=== PATIENT | female | born 1975 | race Caucasian/White ===

== ENCOUNTER 2019-01-17 11:38 | Emergency (ER) | payer OTHER ==
[2019-01-17 12:01] VITALS: BP 125/79; PULSE 77; TEMP 98.2; BMI 28.9
[2019-01-17] MEDS ORDERED: ACETAMINOPHEN 500 MG TABLET (FP) PO ONE (12:28)
[2019-01-17] MEDS ORDERED: ACETAMINOPHEN 325 MG TABLET (FP) ONE (12:30)
--- NOTE | 2019-01-17 12:34 | PDOC ---
History of Present Illness - General Chief Complaint: Pain Stated Complaint: LT. HAND PAIN Time Seen by Provider: 01/17/19 12:15 History Source: Patient Exam Limitations: No Limitations - History of Present Illness Initial Comments: 01/17/19 12:29 HISTORY OF PRESENT ILLNESS: This is a 43-year-old woman presents emergency department for evaluation of left wrist pain status post striking it on a metal door jam yesterday afternoon. Patient took Motrin after the initial injury and applied ice. Patient woke up this morning worsening pain and swelling in her wrist. Patient took Aleve prior to arrival. No recent travel or sick contacts. PAST MEDICAL HISTORY: Denies past medical history SURGICAL HISTORY: Denies ALLERGIES: solumedrol REVIEW OF SYSTEMS General/Constitutional: Denies fever or chills. Denies weakness, weight change. HEENT: Denies change in vision. Denies ear pain or discharge. Denies sore throat. Cardiovascular: Denies chest pain or shortness of breath. Respiratory: Denies cough, wheezing, or hemoptysis. Gastrointestinal: Denies nausea, vomiting, diarrhea or constipation. Denies rectal bleeding. Genitourinary: Denies dysuria, frequency, or change in urination. Musculoskeletal: see HPI Skin and breasts: Denies rash or easy bruising. Neurologic: Denies headache, vertigo, loss of consciousness, or loss of sensation. Psychiatric: Denies depression or anxiety. Endocrine: Denies increased thirst. Denies abnormal weight change. Hematologic/Lymphatic: Denies anemia, easy bleeding, or history of blood clots. Allergic/Immunologic: Denies hives or skin allergy. Denies latex allergy. PHYSICAL EXAM General Appearance: Well-appearing, appropriately dressed. No apparent distress , no intoxication. Vascular Pulses: Radial (R): 2+, Radial (L): 2+ Gastrointestinal/Abdominal: Normal bowel sounds. Abdomen soft, non-distended. No tenderness or rebound tenderness. No organomegaly, pulsatile mass, guarding, hernia, hepatomegaly, splenomegaly. Lymphatic: No adenopathy, tenderness. Musculoskeletal/Extremities: Normal inspection. FROM of left wrist including pronation and suppination, normal capillary refill. Pelvis Stable. No CVA tenderness. No tenderness to extremities, pedal edema, swelling, erythema or deformity. Integumentary: Appropriate color, dry, warm. No cyanosis, erythema, jaundice or rash Past History - Past Medical History Allergies/Adverse Reactions: Allergies Allergy/AdvReac Type Severity Reaction Status Date / Time methylprednisolone sodium AdvReac Verified 01/17/19 11:56 succinate [From Solu-Medrol] Home Medications: Ambulatory Orders Omeprazole [Prilosec] 40 mg PO DAILY #0 capsule. 04/15/14 Canagliflozin [Invokana] 300 mg PO DAILY 05/30/14 Albuterol 0.083% Nebulizer Sailaja [Ventolin 0.083% Nebulizer Soln -] 1 neb NEB Q4H PRN #30 vial 05/31/14 Sitagliptin Phos/Metformin HCl [Janumet 50-500 mg Tablet] 1 tab PO BID 09/19/14 Oxycodone HCl/Acetaminophen [Percocet 5-325 mg Tablet] 1 - 2 combo PO Q6H PRN # 14 tablet MDD 6 08/18/15 Anemia: No Asthma: Yes Cancer: No Cardiac Disorders: No CVA: No COPD: No CHF: No Dementia: No Diabetes: Yes (NIDDM) GI Disorders: Yes (H. PYLORI) Disorders: No HTN: No Hypercholesterolemia: No Liver Disease: Yes (FATTY LIVER) Seizures: No Thyroid Disease: No - Surgical History Abdominal Surgery: No Appendectomy: Yes Cardiac Surgery: No Cholecystectomy: Yes Lung Surgery: No - Immunization History Td Vaccination: Yes Immunization Up to Date: Yes - Suicide/Smoking/Psychosocial Hx Smoking Status: No Smoking History: Never smoked Years of Tobacco Use: 0 Have you smoked in the past 12 months: No Number of Cigarettes Smoked Daily: 0 Cigars Per Day: 0 Hx Alcohol Use: No Drug/Substance Use Hx: No Substance Use Type: None Hx Substance Use Treatment: No *Physical Exam - Vital Signs Last Vital Signs Temp Pulse Resp BP Pulse Ox 98.2 F 77 18 125/79 99 01/17/19 11:53 01/17/19 11:53 01/17/19 11:53 01/17/19 11:53 01/17/19 11:53 ED Treatment Course - RADIOLOGY Radiology Studies Ordered: Category Date Time Status WRIST W/HAND-LEFT* [RAD] Stat Radiology 01/17/19 12:28 Ordered Medical Decision Making - Medical Decision Making 01/17/19 12:33 A/P: 43-year-old woman with left wrist pain for 1 day X-ray of the left wrist and hand Tylenol 1 g PO Reassess 01/17/19 13:01 X-rays as read by Dr. Wolf: Swelling present. No acute fracture noted. Jacques wrap Discharge home I discussed the physical exam findings, ancillary test results and final diagnoses with the patient. I answered all of the patient's questions. The patient was satisfied with the care received and felt comfortable with the discharge plan and treatment plan. The patient will call their primary care physician within 24 hours to arrange follow-up and will return to the Emergency Department with any new, persistent or worsening symptoms. Portions of this note have been documented using voice recognition software. As a result, errors may occur in the architecture faculty member process. Effort has been made to correct all grammatical and architecture faculty member error, but some may have been missed. *DC/Admit/Observation/Transfer Diagnosis at time of Disposition: Contusion of wrist, left Qualifiers: Encounter type: initial encounter Qualified Code(s): S60.212A - Contusion of left wrist, initial encounter - Discharge Dispostion Disposition: HOME Condition at time of disposition: Stable Decision to Admit order: No - Referrals Referrals: Fe Arnold MD [Primary Care Provider] - - Patient Instructions Additional Instructions: Take Tylenol or Motrin as needed for pain. Follow manufacturers instructions for appropriate dosage. Apply ice for 20 minutes and removed for at least 20 minutes before reapplying the ice. Keep Jacques wrap on your wrist as much as possible to help decrease some of the swelling control pain. You've been given the number for an orthopedist. If symptoms do not resolve within the next 7 days call the orthopedist for further evaluation. Return to emergency department for discoloration of the fingers, numbness or tingling to the fingers, worsening pain, or any other concerns. Thank you very much for choosing us to provide your emergent healthcare needs. - Post Discharge Activity
== END 2019-01-17 13:15 | disposition home or self-care (01) ==
LOC: JERFT 11:38 → JER 11:38 → JERFT 13:15
DX: S60.212A Contusion of left wrist, initial encounter (principal); W22.09XA Striking against other stationary object, initial encounter; Y93.89 Activity, other specified; Y92.89 Other specified places as the place of occurrence of the external cause; Y99.8 Other external cause status; E11.9 Type 2 diabetes mellitus without complications; Z79.84 Long term (current) use of oral hypoglycemic drugs; Z87.09 Personal history of other diseases of the respiratory system; Z87.19 Personal history of other diseases of the digestive system
CPT/HCPCS: 73110-TC-LT-FY; 73130-TC-LT-FY; 99281-25

== ENCOUNTER 2020-09-09 21:25 | Observation (INO) | payer OTHER ==
[2020-09-09] MEDS ORDERED: ACETAMINOPHEN 1000 MG/100 ML VIAL (NON FORMULARY) IVPB ONE (22:38)
[2020-09-09] MEDS ORDERED: ACETAMINOPHEN INJECTION 100 ML IVPB ONE (22:40)
[2020-09-09 22:42] LABS: BASO % 0.6 % (0-2.0); EOS % 0.9 % (0-4.5); HEMATOCRIT 40.7 % (32.4-45.2); HEMOGLOBIN 13.8 GM/dL (10.7-15.3); LYMPH % 43.1 % (8-40); MCH 29.4 pg (25.7-33.7); MCHC 33.8 g/dl (32.0-36.0); MEAN PLT VOLUME 8.7 fl (7.5-11.1); MONO % 7.6 % (3.8-10.2); NEUT % 47.8 % (42.8-82.8); PLATELET COUNT 291 K/MM3 (134-434); RBC 4.69 M/mm3 (3.60-5.2); RDW 13.6 % (11.6-15.6); WHITE BLOOD COUNT 8.6 K/mm3 (4.0-10.0)
[2020-09-09 23:04] LABS: BLOOD UREA NITROGEN 15.5 mg/dL (7-18)
[2020-09-09 23:08] LABS: CREATININE 0.9 mg/dL (0.55-1.3)
[2020-09-09 23:09] LABS: BILIRUBIN,TOTAL 0.4 mg/dL (0.2-1); TOT PROT 7.6 g/dl (6.4-8.2)
[2020-09-09] MEDS ORDERED: ASPIRIN 81 MG CHEWABLE TABLETS PO ONE (23:12)
[2020-09-09 23:34] LABS: INR 1.01 (0.83-1.09); PROTHROMBIN TIME (PATIENT) 12.2 SEC (9.7-13.0)
[2020-09-09] MEDS ORDERED: ASPIRIN 81 MG CHEWABLE TABLETS ONE (23:35)
[2020-09-09 23:36] LABS: ACTIVATED PTT 29.8 SECONDS (25.2-36.5)
[2020-09-09] MEDS ORDERED: SODIUM CHLORIDE 0.9% 500 ML INFUS.BAG IV ONE (23:51)
[2020-09-10] MEDS ORDERED: ACETAMINOPHEN 325 MG TABLET (FP) PO ONE (02:12)
[2020-09-10] MEDS ORDERED: ENOXAPARIN NA (PORCINE) 80 MG/0.8 ML DISP.SYRIN SQ ONE ×2 (03:10→03:15)
[2020-09-10] MEDS ORDERED: ENOXAPARIN NA (PORCINE) 60 MG/0.6 ML DISP.SYRIN SQ SCH (03:15)
[2020-09-10 04:22] VITALS: BMI 29.5
[2020-09-10] MEDS ORDERED: PNEUMOC 13-VAL CONJ-DIP CRM/PF 0.5 ML DISP.SYRIN IM ONE (04:22)
[2020-09-10] MEDS: INSULIN SLIDING SCALE (NOVOLOG) 1 VIAL SQ SCH ×2 (06:09→12:34)
[2020-09-10] MEDS ORDERED: ASPIRIN COATED 81 MG TABLET.EC PO SCH (10:00)
[2020-09-10] MEDS ORDERED: ENOXAPARIN NA (PORCINE) 40 MG/0.4 ML DISP.SYRIN SQ SCH (10:00)
[2020-09-10] MEDS ORDERED: PNEUMOCOCCAL 23 VACCINE 0.5 ML VIAL IM ONE (10:00)
[2020-09-10 15:18] VITALS: BP 106/64; PULSE 69; TEMP 98.2
== END 2020-09-10 18:23 | disposition home or self-care (01) ==
LOC: JER 21:25 → INTOOBSV 23:47 → UNDOADMOB 23:47 → JERBED 23:47 → J4W 09-10 03:22 → JERBED 09-10 15:55 → J4W 09-10 15:55
PROVIDERS: ADMIT Internal Medicine; ATTEND Internal Medicine
PROC: 3E023GC Introduction of Other Therapeutic Substance into Muscle, Percutaneous Approach (ICD-10-PCS; principal; 2020-09-10)
PROC: 3E033NZ Introduction of Analgesics, Hypnotics, Sedatives into Peripheral Vein, Percutaneous Approach (ICD-10-PCS; 2020-09-10)
PROC: 3E023GC Introduction of Other Therapeutic Substance into Muscle, Percutaneous Approach (ICD-10-PCS; 2020-09-10)
PROC: 3E0337Z Introduction of Electrolytic and Water Balance Substance into Peripheral Vein, Percutaneous Approach (ICD-10-PCS; 2020-09-10)
DX: R07.89 Other chest pain (principal); E11.9 Type 2 diabetes mellitus without complications; J45.909 Unspecified asthma, uncomplicated; R79.89 Other specified abnormal findings of blood chemistry; Z88.8 Allergy status to other drugs, medicaments and biological substances; Z29.9 Encounter for prophylactic measures, unspecified
CPT/HCPCS: 36415; 71045-TC-FY; 71275-TC; 74174-TC; 80053; 80061; 82550; 82553; 82962; 83721; 84484; 85025; 85379; 85610; 85730; 90732; 93005; 93010; 99285-25; C9803; G0009; G0378; J0131; Q9967; U0003; U0005

== ENCOUNTER 2021-05-07 13:39 | Emergency (ER) | payer OTHER ==
[2021-05-07 14:19] VITALS: BP 102/67; PULSE 93; TEMP 97; BMI 29.5
[2021-05-07] MEDS ORDERED: KETOROLAC TROMETHAMINE 30 MG/1 ML VIAL IM ONE (14:29)
[2021-05-07] MEDS ORDERED: KETOROLAC TROMETHAMINE 30 MG/1 ML VIAL ONE (16:02)
== END 2021-05-07 18:28 | disposition home or self-care (01) ==
LOC: JERFT 13:39 → JER 13:39
PROC: 3E023GC Introduction of Other Therapeutic Substance into Muscle, Percutaneous Approach (ICD-10-PCS; principal; 2021-05-07)
DX: S86.911A Strain of unspecified muscle(s) and tendon(s) at lower leg level, right leg, initial encounter (principal); Y99.8 Other external cause status
CPT/HCPCS: 73590-TC-RT-FY; 76882-TC-RT-FY; 99284-25

== ENCOUNTER 2022-03-12 16:59 | Emergency (ER) | payer OTHER ==
[2022-03-12 17:17] VITALS: BMI 27.2
[2022-03-12] MEDS ORDERED: ACETAMINOPHEN 1000 MG/100 ML BAG IVPB ONE (19:45)
[2022-03-12] MEDS ORDERED: ACETAMINOPHEN INJECTION 100 ML IVPB ONE (20:39)
[2022-03-12 21:05] LABS: BASO % 0.8 % (0-2.0); EOS % 2.5 % (0-4.5); HEMATOCRIT 37.4 % (32.4-45.2); HEMOGLOBIN 12.7 GM/dL (10.7-15.3); LYMPH % 38.8 % (8-40); MCH 29.1 pg (25.7-33.7); MEAN CELL VOLUME 85.6 fl (80-96); MEAN PLT VOLUME 8.5 fl (7.5-11.1); NEUT % 47.9 % (42.8-82.8); PLATELET COUNT 229 10^3/uL (134-434); RBC 4.37 M/mm3 (3.60-5.2); RDW 13.7 % (11.6-15.6); WHITE BLOOD COUNT 8.4 K/mm3 (4.0-10.0)
[2022-03-12 21:12] LABS: INR 1.09 (0.83-1.09); PROTHROMBIN TIME (PATIENT) 12.6 SEC (9.7-13.0)
[2022-03-12 21:14] LABS: ACTIVATED PTT 29.8 SECONDS (25.2-36.5)
[2022-03-12 21:23] LABS: ALBUMIN 3.8 g/dl (3.4-5.0); BLOOD UREA NITROGEN 16.5 mg/dL (7-18); CALCIUM 9.1 mg/dL (8.5-10.1)
[2022-03-12 21:26] LABS: CREATININE 0.8 mg/dL (0.55-1.3)
[2022-03-12 21:28] LABS: BILIRUBIN,TOTAL 0.4 mg/dL (0.2-1); TOT PROT 7.1 g/dl (6.4-8.2)
[2022-03-12] MEDS ORDERED: KETOROLAC TROMETHAMINE 15 MG/ML VIAL IVPUSH ONE (22:33)
[2022-03-12] MEDS ORDERED: KETOROLAC TROMETHAMINE 15 MG/ML VIAL ONE (22:46)
[2022-03-12 23:38] VITALS: BP 125/76; PULSE 81; RESP 17; TEMP 97.6
== END 2022-03-12 23:38 | disposition home or self-care (01) ==
LOC: JER 16:59
PROC: 3E033GC Introduction of Other Therapeutic Substance into Peripheral Vein, Percutaneous Approach (ICD-10-PCS; principal; 2022-03-12)
DX: R07.89 Other chest pain (principal)
CPT/HCPCS: 0241U-QW; 36415; 71045-TC-FY; 80053; 84484; 85025; 85610; 85730; 93005; 93010; 99285-25

== ENCOUNTER 2022-10-10 14:15 | Inpatient (IN) | payer OTHER ==
[2022-10-10 14:30] VITALS: BMI 28.3
[2022-10-10] MEDS ORDERED: ALBUTEROL SO4 0.083% IH SOL 2.5 MG/3 ML VIAL.NEB. NEB ONE ×4 (14:34→17:12)
[2022-10-10] MEDS ORDERED: EPINEPHrine 1:1,000 0.3 MG/0.3 ML SYR IM ONE ×2 (15:02→15:03)
[2022-10-10] MEDS ORDERED: MAGNESIUM SULF 50% (8.12 MEQ/2 ML-1 GM VIAL) IVPB ONE (15:03)
[2022-10-10] MEDS ORDERED: DEXAMETHASONE SOD PHOSPHATE 10 MG/1 ML VIAL IVPUSH ONE (15:03)
[2022-10-10] MEDS ORDERED: LACTATED RINGERS SOLUTION 1,000 ML/1,000 ML INFUS.BAG IV STA (15:04)
[2022-10-10] MEDS ORDERED: ALBUTEROL SO4 2.5/IPRATROPIUM 0.5 INH SOL 3 ML VIAL.NEB. NEB ONE (15:04)
[2022-10-10] MEDS ORDERED: ACETAMINOPHEN INJECTION 100 ML IVPB ONE (15:10)
[2022-10-10 15:30] LABS: HEMOGLOBIN 13.6 GM/dL (10.7-15.3); MCH 27.9 pg (25.7-33.7); MCHC 33.1 g/dl (32.0-36.0); MEAN CELL VOLUME 84.4 fl (80-96); MEAN PLT VOLUME 8.6 fl (7.5-11.1); PLATELET COUNT 275 10^3/uL (134-434); RBC 4.85 M/mm3 (3.60-5.2); RDW 14.3 % (11.6-15.6); WHITE BLOOD COUNT 11.4 K/mm3 (4.0-10.0)
[2022-10-10] MEDS ORDERED: ALBUTEROL SULFATE 0.021% (0.63 MG/3 ML) VIAL.NEB NEB ONE (15:35)
[2022-10-10 15:50] LABS: CHLORIDE 106 mmol/L (98-107); SODIUM 141 mmol/L (136-145)
[2022-10-10 15:53] LABS: ALBUMIN 4.2 g/dl (3.4-5.0); BLOOD UREA NITROGEN 12.5 mg/dL (7-18); CALCIUM 9.2 mg/dL (8.5-10.1); CO2 20 mmol/L (21-32); GLUCOSE,RANDOM 153 mg/dL (74-106)
[2022-10-10 15:56] LABS: SGOT/AST 24 U/L (15-37); SGPT/ALT 29 U/L (13-61)
[2022-10-10 15:58] LABS: BILIRUBIN,TOTAL 0.7 mg/dL (0.2-1)
[2022-10-10 15:59] LABS: ALK PHOS 101 U/L (45-117); ANION GAP 15 MMOL/L (8-16); POTASSIUM 2.9 mmol/L (3.5-5.1)
[2022-10-10] MEDS ORDERED: POTASSIUM CHLORIDE ORAL LIQUID 20 MEQ/15 ML PO ONE (16:00)
[2022-10-10] MEDS ORDERED: POTASSIUM CHLORIDE ORAL LIQUID 20 MEQ/15 ML ONE (16:17)
[2022-10-10] MEDS ORDERED: KCL 10 MEQ IVPB 30 MEQ/300 ML INFUS.BAG IVPB ONE (16:17)
[2022-10-10] MEDS: KCL 10 MEQ IVPB 10 MEQ/100 ML INFUS.BAG IVPB SCH ×3 (16:29→20:30)
[2022-10-10 16:59] LABS: ARTERIAL BLD GAS O2 SATURATION 99.2 % (95-98); ARTERIAL BLOOD GAS BASE EXCESS -7.1 mmol/L (-2-2); ARTERIAL BLOOD GAS PO2 172.4 mmHg (80-100); ARTERIAL BLOOD GAS pH 7.416 (7.350-7.450)
[2022-10-10] MEDS ORDERED: ALBUTEROL SO4 HFA INHALER IH PRN (17:06)
[2022-10-10 17:10] LABS: ANISOCYTOSIS 1+; MACROCYTOSIS 0; OVALOCYTE 1+
[2022-10-10] MEDS: ALBUTEROL SO4 2.5/IPRATROPIUM 0.5 INH SOL 3 ML VIAL.NEB. NEB SCH (20:45)
[2022-10-10] MEDS: INSULIN SLIDING SCALE (NOVOLOG) 1 VIAL SQ SCH (21:28)
[2022-10-10] MEDS ORDERED: ACETAMINOPHEN 1000 MG/100 ML BAG IVPB PRN (22:13)
[2022-10-11] MEDS: INSULIN SLIDING SCALE (NOVOLOG) 1 VIAL SQ SCH ×4 (06:16→22:06)
[2022-10-11] MEDS: ALBUTEROL SO4 2.5/IPRATROPIUM 0.5 INH SOL 3 ML VIAL.NEB. NEB SCH ×4 (08:12→21:31)
[2022-10-11 08:21] LABS: HEMATOCRIT 37.1 % (32.4-45.2); LYMPH % 7.6 % (8-40); MCH 27.8 pg (25.7-33.7); MCHC 32.2 g/dl (32.0-36.0); MEAN CELL VOLUME 86.3 fl (80-96); MEAN PLT VOLUME 9.2 fl (7.5-11.1); MONO % 4.6 % (3.8-10.2); NEUT % 87.8 % (42.8-82.8); PLATELET COUNT 248 10^3/uL (134-434); RDW 14.7 % (11.6-15.6); WHITE BLOOD COUNT 19.6 K/mm3 (4.0-10.0)
[2022-10-11 08:38] LABS: POTASSIUM 4.9 mmol/L (3.5-5.1)
[2022-10-11 08:43] LABS: BLOOD UREA NITROGEN 8.7 mg/dL (7-18)
[2022-10-11 08:45] LABS: CALCIUM 9.3 mg/dL (8.5-10.1)
[2022-10-11 08:46] LABS: ALBUMIN 3.8 g/dl (3.4-5.0); MAGNESIUM 2.2 mg/dL (1.8-2.4)
[2022-10-11 08:47] LABS: TOT PROT 7.2 g/dl (6.4-8.2)
[2022-10-11 08:48] LABS: BILIRUBIN,TOTAL 0.8 mg/dL (0.2-1); CREATININE 0.6 mg/dL (0.55-1.3); PHOSPHOROUS 3.8 mg/dL (2.5-4.9)
[2022-10-11] MEDS: ACETAMINOPHEN 325 MG TABLET (FP) PO PRN (10:53)
[2022-10-11] MEDS: PANTOPRAZOLE 40 MG TABLET PO SCH (10:54)
[2022-10-11] MEDS: predniSONE 20 MG TABLET (UD) PO SCH (15:22)
[2022-10-12] MEDS: BUDESONIDE/FORMETEROL FUMARATE 160/4.5 mcg INHALER IH SCH ×3 (01:30→22:57)
[2022-10-12] MEDS: INSULIN SLIDING SCALE (NOVOLOG) 1 VIAL SQ SCH ×4 (06:20→22:52)
[2022-10-12 07:37] LABS: POTASSIUM 4.4 mmol/L (3.5-5.1)
[2022-10-12 07:40] LABS: ALBUMIN 3.5 g/dl (3.4-5.0); BLOOD UREA NITROGEN 10.8 mg/dL (7-18); CALCIUM 8.7 mg/dL (8.5-10.1); MAGNESIUM 2.1 mg/dL (1.8-2.4)
[2022-10-12 07:43] LABS: CREATININE 0.7 mg/dL (0.55-1.3); PHOSPHOROUS 3.6 mg/dL (2.5-4.9)
[2022-10-12 07:45] LABS: BILIRUBIN,TOTAL 0.5 mg/dL (0.2-1); TOT PROT 6.8 g/dl (6.4-8.2)
[2022-10-12] MEDS: ALBUTEROL SO4 2.5/IPRATROPIUM 0.5 INH SOL 3 ML VIAL.NEB. NEB SCH ×4 (08:27→20:05)
[2022-10-12] MEDS: predniSONE 20 MG TABLET (UD) PO SCH (09:39)
[2022-10-12] MEDS: PANTOPRAZOLE 40 MG TABLET PO SCH (09:39)
[2022-10-12] MEDS ORDERED: methylPREDNISolone NA SUCC 40 MG/1 ML VIAL IVPUSH SCH (12:00)
[2022-10-12] MEDS ORDERED: SODIUM CHLORIDE 500 ML IV STA (14:01)
[2022-10-12] MEDS: ACETAMINOPHEN 325 MG TABLET (FP) PO PRN (22:56)
[2022-10-13] MEDS: INSULIN SLIDING SCALE (NOVOLOG) 1 VIAL SQ SCH ×4 (06:33→21:42)
[2022-10-13] MEDS: ALBUTEROL SO4 2.5/IPRATROPIUM 0.5 INH SOL 3 ML VIAL.NEB. NEB SCH ×4 (07:50→20:17)
[2022-10-13 08:47] LABS: BASO % 0.2 % (0-2.0); HEMATOCRIT 36.8 % (32.4-45.2); LYMPH % 17.1 % (8-40); MCH 28.3 pg (25.7-33.7); MCHC 32.6 g/dl (32.0-36.0); MEAN PLT VOLUME 9.3 fl (7.5-11.1); MONO % 6.8 % (3.8-10.2); NEUT % 75.9 % (42.8-82.8); PLATELET COUNT 248 10^3/uL (134-434); RBC 4.24 M/mm3 (3.60-5.2); WHITE BLOOD COUNT 18.4 K/mm3 (4.0-10.0)
[2022-10-13 09:02] LABS: POTASSIUM 4.2 mmol/L (3.5-5.1)
[2022-10-13 09:09] LABS: ALBUMIN 3.4 g/dl (3.4-5.0); BLOOD UREA NITROGEN 12.9 mg/dL (7-18); CALCIUM 8.8 mg/dL (8.5-10.1); MAGNESIUM 2.1 mg/dL (1.8-2.4)
[2022-10-13 09:12] LABS: PHOSPHOROUS 3.6 mg/dL (2.5-4.9)
[2022-10-13 09:13] LABS: CREATININE 0.7 mg/dL (0.55-1.3); TOT PROT 6.9 g/dl (6.4-8.2)
[2022-10-13 09:14] LABS: BILIRUBIN,TOTAL 0.4 mg/dL (0.2-1)
[2022-10-13] MEDS ORDERED: methylPREDNISolone NA SUCC 1000 MG/8 ML VIAL IVPB SCH (10:00)
[2022-10-13] MEDS: predniSONE 20 MG TABLET (UD) PO SCH (10:12)
[2022-10-13] MEDS: PANTOPRAZOLE 40 MG TABLET PO SCH (10:12)
[2022-10-13] MEDS: BUDESONIDE/FORMETEROL FUMARATE 160/4.5 mcg INHALER IH SCH ×2 (10:13→21:42)
[2022-10-13] MEDS ORDERED: ALBUTEROL SO4 HFA INHALER IH PRN (14:13)
[2022-10-13] MEDS ORDERED: ACETAMINOPHEN 325 MG TABLET (FP) PO PRN (14:13)
[2022-10-14] MEDS: INSULIN SLIDING SCALE (NOVOLOG) 1 VIAL SQ SCH ×2 (06:00→11:11)
[2022-10-14] MEDS: ALBUTEROL SO4 2.5/IPRATROPIUM 0.5 INH SOL 3 ML VIAL.NEB. NEB SCH ×2 (07:50→11:40)
[2022-10-14] MEDS: predniSONE 20 MG TABLET (UD) PO SCH (09:18)
[2022-10-14] MEDS: BUDESONIDE/FORMETEROL FUMARATE 160/4.5 mcg INHALER IH SCH (09:50)
[2022-10-14] MEDS ORDERED: PANTOPRAZOLE 40 MG TABLET PO SCH (10:00)
[2022-10-14 10:04] LABS: POTASSIUM 3.7 mmol/L (3.5-5.1)
[2022-10-14 10:06] LABS: ALBUMIN 3.7 g/dl (3.4-5.0); BLOOD UREA NITROGEN 14.2 mg/dL (7-18); CALCIUM 9.6 mg/dL (8.5-10.1)
[2022-10-14 10:10] LABS: CREATININE 0.9 mg/dL (0.55-1.3)
[2022-10-14 10:12] LABS: BILIRUBIN,TOTAL 1.4 mg/dL (0.2-1); TOT PROT 7.3 g/dl (6.4-8.2)
[2022-10-14 10:28] VITALS: BP 109/71; PULSE 71; RESP 18; TEMP 98.7
== END 2022-10-14 13:08 | disposition home or self-care (01) | DRG 203 ==
LOC: JER 14:15 → JERBED 16:32 → INTOOBSV 16:32 → UNDOADMOB 16:32 → JERBED 17:04 → OBSVTOIN 18:47 → J4W 19:40 → J5S 10-13 12:50
PROVIDERS: ADMIT Internal Medicine; ATTEND Internal Medicine
DX: J45.901 Unspecified asthma with (acute) exacerbation (principal); K21.9 Gastro-esophageal reflux disease without esophagitis; K76.0 Fatty (change of) liver, not elsewhere classified; E87.6 Hypokalemia; E11.9 Type 2 diabetes mellitus without complications; E78.5 Hyperlipidemia, unspecified; I10 Essential (primary) hypertension; T59.811A Toxic effect of smoke, accidental (unintentional), initial encounter; E66.3 Overweight; Z68.28 Body mass index [BMI] 28.0-28.9, adult; Y92.89 Other specified places as the place of occurrence of the external cause; J70.5 Respiratory conditions due to smoke inhalation; Z20.1 Contact with and (suspected) exposure to tuberculosis
CPT/HCPCS: 36415; 36600; 71045-TC-FY; 80053; 82803; 82962; 83735; 84100; 84703; 85025; 86480; 87635; 93005; 93010; 94010; 94150; 94640; 94660; 94761; 99285-25; G0378; J0171; J1100

== ENCOUNTER 2023-04-02 17:57 | Emergency (ER) | payer OTHER ==
[2023-04-02 18:19] VITALS: BP 146/98; PULSE 104; RESP 18; TEMP 98.6; BMI 24.3
[2023-04-02] MEDS ORDERED: CEPHALEXIN MONOHYDRATE 500 MG CAPSULE (UD) PO ONE (18:40)
[2023-04-02] MEDS ORDERED: IBUPROFEN 600 MG TABLET (FP) PO ONE ×2 (18:40→18:49)
[2023-04-02] MEDS ORDERED: CEPHALEXIN MONOHYDRATE 500 MG CAPSULE (UD) ONE (18:48)
== END 2023-04-02 19:09 | disposition home or self-care (01) ==
LOC: FER 17:57
DX: R22.0 Localized swelling, mass and lump, head (principal); H01.111 Allergic dermatitis of right upper eyelid
CPT/HCPCS: 99283-25

== ENCOUNTER 2023-05-27 12:00 | Observation (INO) | payer OTHER ==
[2023-05-27 12:11] VITALS: BMI 26.0
[2023-05-27] MEDS ORDERED: ACETAMINOPHEN 1000 MG/100 ML BAG IVPB ONE (13:19)
[2023-05-27] MEDS ORDERED: SODIUM CHLORIDE 0.9% 500 ML INFUS.BAG IV ONE (13:19)
[2023-05-27] MEDS ORDERED: morphine CARPU-JECT 4 MG/1 ML DISP.SYRIN IVPUSH ONE ×2 (13:20→17:42)
[2023-05-27] MEDS ORDERED: ONDANSETRON 4 MG/2 ML VIAL IVPUSH ONE (13:21)
[2023-05-27] MEDS ORDERED: ONDANSETRON 4 MG/2 ML VIAL ONE (13:36)
[2023-05-27] MEDS ORDERED: ACETAMINOPHEN INJECTION 100 ML IVPB ONE (13:36)
[2023-05-27] MEDS ORDERED: morphine SULFATE 4 MG/ML VIAL ONE ×2 (13:36→18:43)
[2023-05-27 13:54] LABS: BASO % 0.5 % (0-2.0); EOS % 0.2 % (0-4.5); HEMATOCRIT 44.4 % (32.4-45.2); LYMPH % 19.9 % (8-40); MCH 29.2 pg (25.7-33.7); MCHC 33.8 g/dl (32.0-36.0); MEAN CELL VOLUME 86.4 fl (80-96); MEAN PLT VOLUME 7.9 fl (7.5-11.1); MONO % 5.9 % (3.8-10.2); NEUT % 73.5 % (42.8-82.8); PLATELET COUNT 270 10^3/uL (134-434); RBC 5.14 M/mm3 (3.60-5.2); WHITE BLOOD COUNT 11.6 K/mm3 (4.0-10.0)
[2023-05-27 13:55] LABS: PH,URINE 6.5 (5.0-8.0); URINE APPEARANCE CLEAR; URINE BILIRUBIN NEGATIVE (NEGATIVE); URINE COLOR YELLOW; URINE GLUCOSE (UA) NEGATIVE (NEGATIVE); URINE KETONE NEGATIVE (NEGATIVE); URINE LEUK ESTERASE NEGATIVE (NEGATIVE); URINE NITRITE NEGATIVE (NEGATIVE); URINE PROTEIN NEGATIVE (NEGATIVE); URINE UROBILINOGEN 0.2 mg/dL (0.2-1.0)
[2023-05-27 13:58] LABS: HCG,QUALITATIVE URINE Negative
[2023-05-27 14:32] LABS: POTASSIUM 4.8 mmol/L (3.5-5.1)
[2023-05-27 14:35] LABS: ALBUMIN 4.4 g/dl (3.4-5.0); BLOOD UREA NITROGEN 11.7 mg/dL (7-18)
[2023-05-27 14:37] LABS: CREATININE 0.6 mg/dL (0.55-1.3)
[2023-05-27 14:39] LABS: TOT PROT 8.2 g/dl (6.4-8.2)
[2023-05-27 14:41] LABS: BILIRUBIN,TOTAL 0.9 mg/dL (0.2-1)
[2023-05-27] MEDS ORDERED: KETOROLAC TROMETHAMINE 15 MG/ML VIAL IVPUSH ONE (15:40)
[2023-05-27] MEDS ORDERED: morphine CARPU-JECT 2 MG/1 ML DISP.SYRIN IVPUSH ONE (15:51)
[2023-05-27] MEDS ORDERED: KETOROLAC TROMETHAMINE 15 MG/ML VIAL ONE (15:52)
[2023-05-27] MEDS ORDERED: ALBUTEROL SO4 HFA INHALER IH PRN (18:41)
[2023-05-27] MEDS ORDERED: IBUPROFEN 800 MG/8 ML IJ IVPB PRN (18:45)
[2023-05-27] MEDS ORDERED: NAPROXEN 250 MG TABLET PO PRN (20:53)
[2023-05-27] MEDS: MONTELUKAST NA 10 MG TABLET PO SCH (22:16)
[2023-05-27] MEDS: CYCLOBENZAPRINE HCL 10 MG TABLET (FP) PO SCH (22:16)
[2023-05-27] MEDS: LIDOCAINE PATCH REMOVAL MC SCH (22:28)
[2023-05-27] MEDS: LIDOCAINE 4% PATCH TP SCH (22:29)
[2023-05-28] MEDS: INSULIN ASPART SLIDING SCALE (NOVOLOG) 1 VIAL SQ SCH ×5 (02:18→22:13)
[2023-05-28] MEDS: LIDOCAINE PATCH REMOVAL MC SCH ×2 (02:20→22:14)
[2023-05-28] MEDS: CYCLOBENZAPRINE HCL 10 MG TABLET (FP) PO SCH ×3 (05:15→22:13)
[2023-05-28] MEDS: BUDESONIDE/FORMETEROL FUMARATE 160/4.5 mcg INHALER IH SCH ×3 (06:34→22:14)
[2023-05-28 09:17] LABS: BASO % 0.3 % (0-2.0); EOS % 0.6 % (0-4.5); HEMATOCRIT 38.8 % (32.4-45.2); HEMOGLOBIN 12.8 GM/dL (10.7-15.3); LYMPH % 29.5 % (8-40); MCH 28.8 pg (25.7-33.7); MCHC 33.1 g/dl (32.0-36.0); MEAN PLT VOLUME 8.2 fl (7.5-11.1); MONO % 8.9 % (3.8-10.2); NEUT % 60.7 % (42.8-82.8); PLATELET COUNT 228 10^3/uL (134-434); RBC 4.46 M/mm3 (3.60-5.2); RDW 14.2 % (11.6-15.6); WHITE BLOOD COUNT 8.7 K/mm3 (4.0-10.0)
[2023-05-28 09:48] LABS: CALCIUM 9.2 mg/dL (8.5-10.1)
[2023-05-28 09:49] LABS: BLOOD UREA NITROGEN 11.4 mg/dL (7-18)
[2023-05-28 09:50] LABS: CREATININE 0.9 mg/dL (0.55-1.3)
[2023-05-28 09:51] LABS: BILIRUBIN,TOTAL 0.8 mg/dL (0.2-1); TOT PROT 6.6 g/dl (6.4-8.2)
[2023-05-28 09:53] LABS: ALBUMIN 3.5 g/dl (3.4-5.0)
[2023-05-28] MEDS ORDERED: KETOROLAC TROMETHAMINE 15 MG/ML VIAL IVPUSH PRN (10:13)
[2023-05-28] MEDS ORDERED: ACETAMINOPHEN 325 MG TABLET (FP) PO PRN ×2 (10:15→10:27)
[2023-05-28] MEDS: LIDOCAINE 4% PATCH TP SCH (10:49)
[2023-05-28] MEDS: LOSARTAN POTASSIUM 25 MG TABLET PO SCH (10:49)
[2023-05-28] MEDS: ROSUVASTATIN CA 10 MG TABLET PO SCH (10:49)
[2023-05-28] MEDS: FAMOTIDINE 20 MG TABLET PO SCH (10:49)
[2023-05-28] MEDS: ENOXAPARIN NA (PORCINE) 40 MG/0.4 ML DISP.SYRIN SQ SCH (10:50)
[2023-05-28] MEDS: KETOROLAC TROMETHAMINE 30 MG/1 ML VIAL IVPUSH SCH ×2 (10:50→17:37)
[2023-05-28] MEDS ORDERED: INSULIN (NOVOLOG) ASPART 100 UNITS/ML 10ML VIAL ONE (21:18)
[2023-05-28] MEDS: MONTELUKAST NA 10 MG TABLET PO SCH (22:13)
[2023-05-29] MEDS: KETOROLAC TROMETHAMINE 30 MG/1 ML VIAL IVPUSH SCH ×2 (02:25→10:03)
[2023-05-29] MEDS: CYCLOBENZAPRINE HCL 10 MG TABLET (FP) PO SCH (05:08)
[2023-05-29 06:08] VITALS: PULSE 79
[2023-05-29 06:09] VITALS: RESP 18
[2023-05-29 06:44] VITALS: BP 99/59; TEMP 97.7
[2023-05-29] MEDS: INSULIN ASPART SLIDING SCALE (NOVOLOG) 1 VIAL SQ SCH ×2 (07:13→12:45)
[2023-05-29] MEDS: FAMOTIDINE 20 MG TABLET PO SCH (10:03)
[2023-05-29] MEDS: ROSUVASTATIN CA 10 MG TABLET PO SCH (10:03)
[2023-05-29] MEDS: BUDESONIDE/FORMETEROL FUMARATE 160/4.5 mcg INHALER IH SCH (10:04)
[2023-05-29] MEDS: LOSARTAN POTASSIUM 25 MG TABLET PO SCH (10:04)
[2023-05-29] MEDS: ENOXAPARIN NA (PORCINE) 40 MG/0.4 ML DISP.SYRIN SQ SCH (10:04)
[2023-05-29] MEDS: LIDOCAINE 4% PATCH TP SCH (10:04)
== END 2023-05-29 13:39 | disposition home or self-care (01) ==
LOC: JER 12:00 → JERBED 17:49 → J7W 20:06
PROVIDERS: ADMIT Internal Medicine; ATTEND Nurse Practitioner
PROC: 3E033NZ Introduction of Analgesics, Hypnotics, Sedatives into Peripheral Vein, Percutaneous Approach (ICD-10-PCS; principal; 2023-05-27)
PROC: 3E023GC Introduction of Other Therapeutic Substance into Muscle, Percutaneous Approach (ICD-10-PCS; 2023-05-27)
PROC: 3E033GC Introduction of Other Therapeutic Substance into Peripheral Vein, Percutaneous Approach (ICD-10-PCS; 2023-05-27)
PROC: 3E0333Z Introduction of Anti-inflammatory into Peripheral Vein, Percutaneous Approach (ICD-10-PCS; 2023-05-27)
PROC: 3E0337Z Introduction of Electrolytic and Water Balance Substance into Peripheral Vein, Percutaneous Approach (ICD-10-PCS; 2023-05-27)
DX: N20.0 Calculus of kidney (principal); E11.9 Type 2 diabetes mellitus without complications; J45.909 Unspecified asthma, uncomplicated; E78.5 Hyperlipidemia, unspecified; Z90.49 Acquired absence of other specified parts of digestive tract; Z90.79 Acquired absence of other genital organ(s)
CPT/HCPCS: 36415; 71046-TC-FY; 74177-TC; 76830-TC; 80053; 81003; 82962; 83690; 84484; 84703; 85025; 87086; 93005; 93010; 97116-GP; 97161-GP; 99285-25; G0378; Q9967

== ENCOUNTER 2023-12-19 11:17 | Observation (INO) | payer OTHER ==
[2023-12-19] MEDS ORDERED: EPINEPHrine/PF 1 MG/1 ML (1:1,000) AMPULE ONE ×2 (11:34→11:54)
[2023-12-19] MEDS ORDERED: ALBUTEROL SO4 0.083% IH SOL 2.5 MG/3 ML VIAL.NEB. NEB ONE ×2 (11:37→11:52)
[2023-12-19] MEDS ORDERED: RACEPINEPHRINE IH SOL 2.25% 11.25 MG/0.5 ML VIAL NEB ONE (11:38)
[2023-12-19] MEDS ORDERED: ONDANSETRON 4 MG/2 ML VIAL ONE (11:41)
[2023-12-19 11:42] VITALS: BMI 24.4
[2023-12-19] MEDS: EPINEPHrine 1:10,000 (P-F SYR) 1 MG/10 ML DISP.SYRIN IM ONE ×2 (11:50→11:59)
[2023-12-19 12:29] LABS: BASO % 0.4 % (0-2.0); EOS % 0.1 % (0-4.5); HEMATOCRIT 38.6 % (32.4-45.2); HEMOGLOBIN 12.8 GM/dL (10.7-15.3); LYMPH % 30.2 % (8-40); MCH 28.9 pg (25.7-33.7); MCHC 33.2 g/dl (32.0-36.0); MEAN CELL VOLUME 87.1 fl (80-96); MEAN PLT VOLUME 8.2 fl (7.5-11.1); MONO % 7.1 % (3.8-10.2); NEUT % 62.2 % (42.8-82.8); PLATELET COUNT 299 10^3/uL (134-434); RBC 4.42 M/mm3 (3.60-5.2); RDW 14.5 % (11.6-15.6)
[2023-12-19 12:35] LABS: VENOUS BASE EXCESS -5.9 mmol/L (-2-2); VENOUS O2 SATURATION 87.8 % (70-80); VENOUS PCO2 26.4 mmHg (38-52); VENOUS PH 7.424 (7.310-7.410)
[2023-12-19 12:57] LABS: CHLORIDE 106 mmol/L (98-107); SODIUM 137 mmol/L (136-145)
[2023-12-19 12:58] LABS: CALCIUM 9.2 mg/dL (8.5-10.1)
[2023-12-19 12:59] LABS: BLOOD UREA NITROGEN 25.3 mg/dL (7-18); CO2 16 mmol/L (21-32); GLUCOSE,RANDOM 225 mg/dL (74-106)
[2023-12-19 13:02] LABS: ANION GAP 16 mmol/L (4-13); CREATININE 1.1 mg/dL (0.55-1.3); POTASSIUM 2.9 mmol/L (3.5-5.1); SGOT/AST 29 U/L (15-37); SGPT/ALT 31 U/L (13-61)
[2023-12-19 13:03] LABS: BILIRUBIN,TOTAL 0.8 mg/dL (0.2-1); TOT PROT 7.3 g/dl (6.4-8.2)
[2023-12-19] MEDS ORDERED: POTASSIUM CHLORIDE ORAL LIQUID 20 MEQ/15 ML ONE (13:04)
[2023-12-19 13:05] LABS: ALK PHOS 85 U/L (45-117)
[2023-12-19] MEDS: KCL 10 MEQ IVPB 10 MEQ/100 ML INFUS.BAG IVPB SCH (13:24)
[2023-12-19] MEDS: POTASSIUM CHLORIDE ORAL LIQUID 20 MEQ/15 ML PO ONE (13:34)
[2023-12-19] MEDS: EPINEPHrine 1:1,000 1,000 MCG in SODIUM CHLORIDE 249 ML IVPB SCH (13:45)
[2023-12-19] MEDS ORDERED: KCL 10 MEQ IVPB 10 MEQ/100 ML INFUS.BAG IVPB ONE ×2 (14:20→15:19)
[2023-12-19 14:23] LABS: ALLENS TEST POSITIVE; ARTERIAL BLD GAS O2 SATURATION 98.6 % (95-98); ARTERIAL BLOOD GAS BASE EXCESS -5.5 mmol/L (-2-2); ARTERIAL BLOOD GAS PCO2 < 16.70 mmHg (35-45); ARTERIAL BLOOD GAS PO2 106.6 mmHg (80-100); ARTERIAL BLOOD GAS pH 7.571 (7.350-7.450)
[2023-12-19 15:48] LABS: OPIATES, URI NEGATIVE (NEGATIVE); PHENCYCLIDINE,URINE NEGATIVE (NEGATIVE); URINE BARBITURATES NEGATIVE (NEGATIVE); URINE BENZODIAZEPINES NEGATIVE (NEGATIVE)
[2023-12-19 15:57] LABS: COCAINE, UR NEGATIVE (NEGATIVE); METHADONE, UR NEGATIVE (NEGATIVE); URINE AMPHETAMINES NEGATIVE (NEGATIVE)
[2023-12-19] MEDS: INSULIN ASPART SLIDING SCALE (NOVOLOG) 1 VIAL SQ SCH (17:00)
[2023-12-19 17:25] LABS: POTASSIUM 4.3 mmol/L (3.5-5.1)
[2023-12-19 17:27] LABS: CALCIUM 9.2 mg/dL (8.5-10.1)
[2023-12-19 17:31] LABS: CREATININE 1.1 mg/dL (0.55-1.3)
[2023-12-19] MEDS: ALBUTEROL SO4 HFA INHALER IH PRN (18:30)
[2023-12-19] MEDS ORDERED: ALBUTEROL SO4 HFA INHALER IH ONE (18:54)
[2023-12-19] MEDS: TRIMETHOBENZAMIDE HCL 200MG/2ML INJ IM ONE (20:40)
[2023-12-19] MEDS: ROSUVASTATIN CA 10 MG TABLET PO SCH (21:44)
[2023-12-19] MEDS: MONTELUKAST NA 10 MG TABLET PO SCH (21:44)
[2023-12-19] MEDS: SODIUM CHLORIDE 0.9% 1000 ML INFUS.BAG IV ONE (21:45)
[2023-12-19] MEDS ORDERED: BUDESONIDE/FORMETEROL FUMARATE 160/4.5 mcg INHALER IH SCH (22:00)
[2023-12-19] MEDS: IPRATROPIUM BR 0.02% 0.5 MG/2.5 ML VIAL.NEB. NEB SCH (22:00)
[2023-12-20] MEDS: LEVALBUTEROL HCL 0.63 MG/3 ML VIAL.NEB. IH SCH (06:24)
[2023-12-20 07:45] LABS: HEMATOCRIT 36.9 % (32.4-45.2); MCH 28.6 pg (25.7-33.7); MCHC 32.6 g/dl (32.0-36.0); MEAN CELL VOLUME 87.6 fl (80-96); MEAN PLT VOLUME 8.5 fl (7.5-11.1); PLATELET COUNT 251 10^3/uL (134-434); RBC 4.22 M/mm3 (3.60-5.2); RDW 14.6 % (11.6-15.6); WHITE BLOOD COUNT 16.7 K/mm3 (4.0-10.0)
[2023-12-20 07:56] LABS: POTASSIUM 4.3 mmol/L (3.5-5.1)
[2023-12-20 08:00] LABS: CALCIUM 9.2 mg/dL (8.5-10.1)
[2023-12-20 08:01] LABS: ALBUMIN 3.7 g/dl (3.4-5.0); BLOOD UREA NITROGEN 13.1 mg/dL (7-18); MAGNESIUM 2.3 mg/dL (1.8-2.4)
[2023-12-20 08:04] LABS: CREATININE 0.8 mg/dL (0.55-1.3); PHOSPHOROUS 4.4 mg/dL (2.5-4.9)
[2023-12-20 08:06] LABS: BILIRUBIN,TOTAL 1.1 mg/dL (0.2-1); TOT PROT 6.7 g/dl (6.4-8.2)
[2023-12-20] MEDS ORDERED: BENZOCAINE/MENTH/CETYLPYRD CL 1 EACH LOZENGE MM PRN (08:15)
[2023-12-20] MEDS: DEXAMETHASONE 4 MG TABLET (FP) PO SCH (09:59)
[2023-12-20] MEDS: HYDROCHLOROTHIAZIDE 25 MG TABLET (FP) PO SCH (09:59)
[2023-12-20] MEDS: ENOXAPARIN NA (PORCINE) 40 MG/0.4 ML DISP.SYRIN SQ SCH (09:59)
[2023-12-20] MEDS: PANTOPRAZOLE 20 MG TABLET PO SCH (09:59)
[2023-12-20] MEDS: LOSARTAN POTASSIUM 25 MG TABLET PO SCH (09:59)
[2023-12-20] MEDS ORDERED: predniSONE 20 MG TABLET (UD) PO SCH (10:00)
[2023-12-20] MEDS: FLUTICASONE/UMECLIDIN/VILANTER(200-62.5-25 TRELEGY ELLIPTA) INAHLER IH SCH (11:13)
[2023-12-20 12:17] LABS: HEMATOCRIT 35.9 % (32.4-45.2); HEMOGLOBIN 11.9 GM/dL (10.7-15.3); MCH 29.2 pg (25.7-33.7); MCHC 33.2 g/dl (32.0-36.0); MEAN PLT VOLUME 7.7 fl (7.5-11.1); PLATELET COUNT 232 10^3/uL (134-434); RBC 4.08 M/mm3 (3.60-5.2); RDW 14.9 % (11.6-15.6); WHITE BLOOD COUNT 15.6 K/mm3 (4.0-10.0)
[2023-12-21 04:32] VITALS: RESP 18
[2023-12-21 05:38] VITALS: TEMP 98.2
[2023-12-21 09:26] VITALS: BP 101/69; PULSE 79
[2023-12-21] MEDS: SUMAtriptan SUCCINATE 50 MG TABLET PO PRN (09:26)
[2023-12-21] MEDS ORDERED: guaiFENesin 200 MG/10 ML 10 ML UNIT-DOSE CUPS PO PRN (09:28)
[2023-12-21] MEDS: ACETAMINOPHEN 1000 MG/100 ML BAG IVPB PRN (11:49)
== END 2023-12-21 15:28 | disposition home or self-care (01) ==
LOC: JER 11:17 → JERBED 13:33 → UNDOADMOB 13:33 → INTOOBSV 13:33 → JERBED 13:53 → J4W 19:31
PROVIDERS: ADMIT Internal Medicine; ATTEND Registered Nurse
PROC: 3E033NZ Introduction of Analgesics, Hypnotics, Sedatives into Peripheral Vein, Percutaneous Approach (ICD-10-PCS; principal; 2023-12-19)
PROC: 3E023GC Introduction of Other Therapeutic Substance into Muscle, Percutaneous Approach (ICD-10-PCS; 2023-12-19)
PROC: 3E0F7GC Introduction of Other Therapeutic Substance into Respiratory Tract, Via Natural or Artificial Opening (ICD-10-PCS; 2023-12-19)
PROC: 3E033NZ Introduction of Analgesics, Hypnotics, Sedatives into Peripheral Vein, Percutaneous Approach (ICD-10-PCS; 2023-12-19)
PROC: 3E033GC Introduction of Other Therapeutic Substance into Peripheral Vein, Percutaneous Approach (ICD-10-PCS; 2023-12-19)
PROC: 3E0337Z Introduction of Electrolytic and Water Balance Substance into Peripheral Vein, Percutaneous Approach (ICD-10-PCS; 2023-12-19)
DX: J45.51 Severe persistent asthma with (acute) exacerbation (principal); E11.9 Type 2 diabetes mellitus without complications; E78.5 Hyperlipidemia, unspecified; K21.9 Gastro-esophageal reflux disease without esophagitis; K76.0 Fatty (change of) liver, not elsewhere classified
CPT/HCPCS: 0241U-QW; 36415; 36600; 71045-TC-FY; 71275-TC; 80048; 80053; 80307; 82803; 82962; 83735; 84100; 84484; 84703; 85025; 85027; 93005; 93010; 94150; 94640; 94660; 94761; 99285-25; G0378; J0131; Q9967

== ENCOUNTER 2024-01-30 12:57 | Emergency (ER) | payer OTHER ==
[2024-01-30 13:33] VITALS: TEMP 98.5; BMI 24.2
[2024-01-30] MEDS ORDERED: ALBUTEROL SO4 2.5/IPRATROPIUM 0.5 INH SOL 3 ML VIAL.NEB. NEB ONE (14:04)
[2024-01-30] MEDS: predniSONE 20 MG TABLET (UD) PO ONE (14:08)
[2024-01-30] MEDS: ALBUTEROL SO4 2.5/IPRATROPIUM 0.5 INH SOL 3 ML VIAL.NEB. NEB SCH (14:08)
[2024-01-30] MEDS ORDERED: ACETAMINOPHEN 500 MG TABLET (FP) ONE (14:24)
[2024-01-30] MEDS: ACETAMINOPHEN 500 MG TABLET (FP) PO ONE (14:28)
[2024-01-30 17:44] LABS: HEMATOCRIT 38.9 % (32.4-45.2); HEMOGLOBIN 12.8 GM/dL (10.7-15.3); MCH 28.7 pg (25.7-33.7); MCHC 32.9 g/dl (32.0-36.0); MEAN CELL VOLUME 87.4 fl (80-96); MEAN PLT VOLUME 7.8 fl (7.5-11.1); PLATELET COUNT 274 10^3/uL (134-434); RBC 4.45 M/mm3 (3.60-5.2); RDW 14.5 % (11.6-15.6); WHITE BLOOD COUNT 12.5 K/mm3 (4.0-10.0)
[2024-01-30 18:06] LABS: POTASSIUM 3.5 mmol/L (3.5-5.1)
[2024-01-30 18:08] LABS: ALBUMIN 3.5 g/dl (3.4-5.0); BLOOD UREA NITROGEN 15.1 mg/dL (7-18)
[2024-01-30 18:12] LABS: CREATININE 0.9 mg/dL (0.55-1.3)
[2024-01-30 18:13] LABS: BILIRUBIN,TOTAL 0.3 mg/dL (0.2-1); TOT PROT 6.8 g/dl (6.4-8.2)
[2024-01-30 18:36] LABS: ANISOCYTOSIS 1+; MACROCYTOSIS 0
[2024-01-30 20:00] VITALS: BP 114/51; PULSE 95; RESP 19
[2024-01-30] MEDS: SODIUM CHLORIDE 0.9% 500 ML INFUS.BAG IV ONE (20:26)
[2024-01-30] MEDS ORDERED: PROCHLORPERAZINE INJECTION 10 MG/2 ML VIAL ONE (21:45)
[2024-01-30] MEDS: PROCHLORPERAZINE INJECTION 10 MG/2 ML VIAL IVPB ONE (21:55)
== END 2024-01-31 00:45 | disposition home or self-care (01) ==
LOC: JER 12:57
PROC: 3E033GC Introduction of Other Therapeutic Substance into Peripheral Vein, Percutaneous Approach (ICD-10-PCS; principal; 2024-01-30)
PROC: 3E0F7GC Introduction of Other Therapeutic Substance into Respiratory Tract, Via Natural or Artificial Opening (ICD-10-PCS; 2024-01-30)
DX: J45.909 Unspecified asthma, uncomplicated (principal); R06.02 Shortness of breath
CPT/HCPCS: 36415; 71045-TC-FY; 71275-TC; 80053; 85025; 85379; 93005; 93010; 99285-25; Q9967

== ENCOUNTER 2024-12-04 10:37 | Emergency (ER) | payer OTHER ==
[2024-12-04 10:48] VITALS: TEMP 98.3; BMI 24.7
[2024-12-04] MEDS ORDERED: ALBUTEROL SO4 2.5/IPRATROPIUM 0.5 INH SOL 3 ML VIAL.NEB. NEB ONE (10:51)
[2024-12-04] MEDS ORDERED: DEXAMETHASONE 4 MG TABLET (FP) ONE (10:56)
[2024-12-04] MEDS ORDERED: DEXAMETHASONE SOD PHOSPHATE 10 MG/1 ML VIAL ONE (11:03)
[2024-12-04] MEDS: DEXAMETHASONE 4 MG TABLET (FP) PO ONE (11:10)
[2024-12-04] MEDS: ALBUTEROL SO4 2.5/IPRATROPIUM 0.5 INH SOL 3 ML VIAL.NEB. NEB ONE (11:10)
[2024-12-04] MEDS: DEXAMETHASONE SOD PHOSPHATE 10 MG/1 ML VIAL IM ONE (11:10)
[2024-12-04] MEDS ORDERED: FAMOTIDINE 20 MG TABLET ONE (11:16)
[2024-12-04] MEDS ORDERED: diphenhydrAMINE HCL 25 MG CAPSULE (FP) PO ONE ×2 (11:16→12:36)
[2024-12-04] MEDS: diphenhydrAMINE HCL 25 MG CAPSULE (FP) PO ONE ×2 (11:20→12:39)
[2024-12-04] MEDS: FAMOTIDINE 20 MG TABLET PO ONE (11:21)
[2024-12-04 12:25] VITALS: BP 104/60
[2024-12-04 13:39] VITALS: PULSE 98; RESP 16
== END 2024-12-04 13:37 | disposition home or self-care (01) ==
LOC: JER 10:37
PROC: 3E023GC Introduction of Other Therapeutic Substance into Muscle, Percutaneous Approach (ICD-10-PCS; principal; 2024-12-04)
PROC: 3E0F7GC Introduction of Other Therapeutic Substance into Respiratory Tract, Via Natural or Artificial Opening (ICD-10-PCS; 2024-12-04)
DX: J45.901 Unspecified asthma with (acute) exacerbation (principal); R06.02 Shortness of breath; R05.9 Cough, unspecified; R00.0 Tachycardia, unspecified; R06.82 Tachypnea, not elsewhere classified; L29.9 Pruritus, unspecified; H02.849 Edema of unspecified eye, unspecified eyelid
CPT/HCPCS: 71045-TC-FY; 87637-QW; 93005; 93010; 99285-25; J1100